=== PATIENT | male | born 1995 | race Caucasian/White ===

== ENCOUNTER 2018-07-23 14:11 | Emergency (ER) | payer OTHER | END 2018-07-23 14:41 | disposition home or self-care (01) | LOC: EDH 14:11 | DX: H66.91 Otitis media, unspecified, right ear (principal) ==

== ENCOUNTER 2018-09-10 15:25 | Emergency (ER) | payer OTHER | END 2018-09-10 15:50 | disposition home or self-care (01) | LOC: EDH 15:25 | DX: H66.91 Otitis media, unspecified, right ear (principal) ==

== ENCOUNTER 2019-01-27 12:03 | Emergency (ER) | payer OTHER ==
[2019-01-27] MEDS ORDERED: TETANUS/DIPHTHERIA TOXOID [ADULT] 0.5 ML VIAL IM ONE (12:43)
== END 2019-01-27 13:07 | disposition home or self-care (01) ==
LOC: EDH 12:03
DX: S50.812A Abrasion of left forearm, initial encounter (principal); Z88.0 Allergy status to penicillin; Z88.2 Allergy status to sulfonamides; Z98.890 Other specified postprocedural states; W22.8XXA Striking against or struck by other objects, initial encounter; Y93.89 Activity, other specified; Y92.098 Other place in other non-institutional residence as the place of occurrence of the external cause; Y99.8 Other external cause status
CPT/HCPCS: 90471; 90714